=== PATIENT | female | born 1960 | race Caucasian/White ===

== ENCOUNTER 2019-04-28 07:21 | Day surgery (SDC) | payer OTHER ==
[2019-04-28] MEDS ORDERED: MIDAZOLAM 1 MG/ML 2 ML INJ (09:44)
[2019-04-28] MEDS ORDERED: FENTAnyl 50 MCG/ML VIAL (09:44)
== END 2019-04-28 10:39 | disposition home or self-care (01) ==
LOC: GIL 07:21
DX: Z12.11 Encounter for screening for malignant neoplasm of colon (principal); D12.5 Benign neoplasm of sigmoid colon; K64.8 Other hemorrhoids
CPT/HCPCS: 45380; 88305